=== PATIENT | male | born 1965 | race Caucasian/White ===

== ENCOUNTER 2020-04-25 14:29 | Emergency (ER) | payer BC ==
--- NOTE | 2020-04-25 15:00 | CR ---
INDICATION: Pt w/cough, no taste or smell, COVID symptoms TECHNIQUE: Chest 1 view COMPARISON: None FINDINGS: Cardiovascular and mediastinum: Mild tortuosity of the descending thoracic aorta. Cardiac silhouette is normal. Lungs and pleural spaces: Lungs are clear. No sign of infiltrate or mass. No sign of pleural effusion. No pneumothorax. Bones and soft tissues: No significant findings. IMPRESSION: No acute findings. Dictated by Sonu Biggs MD @ Apr 25 2020 2:57PM Signed by Dr. Sonu Biggs @ Apr 25 2020 2:59PM
--- NOTE | 2020-04-25 16:12 | EDM.PDOC ---
ED HPI GENERAL MEDICAL PROBLEM - General Chief Complaint: Respiratory Problem Stated Complaint: COUGH WEAK Time Seen by Provider: 04/25/20 15:10 Source of Information: Reports: Patient History Limitations: Reports: No Limitations - History of Present Illness INITIAL COMMENTS - FREE TEXT/NARRATIVE: Presents reporting a dry cough, fatigue, loss of taste, had a Covid exposure. His employer told him he had to go to the emergency room Covid test. Otherwise healthy without chronic medical problems. He does not smoke cigarettes and he has had no fever, breathing problems, sore throat, diarrhea, chest pain, headache. - Related Data Allergies Allergy/AdvReac Type Severity Reaction Status Date / Time No Known Allergies Allergy Verified 04/25/20 15:53 Home Meds: Home Meds . [No Known Home Meds] 04/25/20 [History] Past Medical History Other Musculoskeletal History: R hand sx - Infectious Disease History Infectious Disease History: Reports: Chicken Pox - Past Surgical History GI Surgical History: Reports: Colonoscopy Social & Family History - Family History Family Medical History: Noncontributory - Caffeine Use Caffeine Use: Reports: None - Recreational Drug Use Recreational Drug Use: No ED ROS GENERAL - Review of Systems Review Of Systems: Comprehensive ROS is negative, except as noted in HPI. ED EXAM, GENERAL - Physical Exam Exam: See Below Exam Limited By: No Limitations General Appearance: Alert, No Apparent Distress Ears: Normal External Exam Nose: Normal Inspection Throat/Mouth: Normal Inspection Head: Atraumatic, Normocephalic Neck: Normal Inspection Respiratory/Chest: No Respiratory Distress, Lungs Clear, Normal Breath Sounds Cardiovascular: Normal Peripheral Pulses, Regular Rate, Rhythm, No Murmur Neurological: Alert, Oriented, Normal Cognition Psychiatric: Normal Affect, Normal Mood Skin Exam: Warm, Dry, Intact, Normal Color Lymphatic: No Adenopathy Course - Vital Signs Last Recorded V/S: Last Vital Signs Temp 37.1 C 04/25/20 15:54 Pulse 75 04/25/20 15:54 Resp 18 04/25/20 15:54 BP 150/85 H 04/25/20 15:54 Pulse Ox 94 L 04/25/20 15:54 - Orders/Labs/Meds Orders: Active Orders 24 hr Category Date Time Status CORONAVIRUS COVID-19 PCR PH[facility] Stat Lab 04/25/20 16:29 Received Labs: Laboratory Tests 04/25/20 Range/Units 16:29 SARS CoV-2 RNA Rapid ASIA NEGATIVE (NEGATIVE) Departure - Departure Time of Disposition: 17:29 Disposition: Home, Self-Care 01 Condition: Good Clinical Impression: Viral illness - Discharge Information *PRESCRIPTION DRUG MONITORING PROGRAM REVIEWED*: Not Applicable *COPY OF PRESCRIPTION DRUG MONITORING REPORT IN PATIENT DALILA: Not Applicable Referrals: Uday Storey MD [Primary Care Provider] - Forms: ED Department Discharge Additional Instructions: The following information is given to patients seen in the emergency department who are being discharged to home. This information is to outline your options for follow-up care. We provide all patients seen in our emergency department with a follow-up referral. The need for follow-up, as well as the timing and circumstances, are variable depending upon the specifics of your emergency department visit. If you don't have a primary care physician on staff, we will provide you with a referral. We always advise you to contact your personal physician following an emergency department visit to inform them of the circumstance of the visit and for follow-up with them and/or the need for any referrals to a consulting specialist. The emergency department will also refer you to a specialist when appropriate. This referral assures that you have the opportunity for follow-up care with a specialist. All of these measure are taken in an effort to provide you with optimal care, which includes your follow-up. Under all circumstances we always encourage you to contact your private physician who remains a resource for coordinating your care. When calling for follow-up care, please make the office aware that this follow-up is from your recent emergency room visit. If for any reason you are refused follow-up, please contact the [facility] Emergency Department at and asked to speak to the emergency department charge nurse. 1. Tylenol or ibuprofen as needed for fever or body aches 2. May follow-up at respiratory clinic next week for additional Covid testing. Sepsis Event Note (ED) - Evaluation Sepsis Screening Result: No Definite Risk - Focused Exam Vital Signs: Vital Signs Temp Pulse Resp BP Pulse Ox 04/25/20 15:54 37.1 C 75 18 150/85 H 94 L
== END 2020-04-25 18:01 | disposition home or self-care (01) ==
LOC: MW.ED 14:29
DX: B34.9 Viral infection, unspecified (principal); Z20.828 Contact with and (suspected) exposure to other viral communicable diseases
CPT/HCPCS: 71045; 71045-26; 99282; 99283-25; U0002